=== PATIENT | male | born 1960 | race Caucasian/White ===

== ENCOUNTER 2025-01-02 16:58 | Inpatient (IN) | payer MEDICARE ==
[~2025-01-02] VITALS: Ht 172.7 cm; Wt 81.6 kg
[2025-01-02] MEDS ORDERED: ARIP30TA21 PO (19:13)
[2025-01-02] MEDS ORDERED: ICOS1CAP PO (19:13)
[2025-01-02] MEDS ORDERED: EMPA10TA PO (19:13)
[2025-01-02] MEDS ORDERED: LISI2.5T2 PO (19:13)
[2025-01-02] MEDS ORDERED: CHOL200059 PO (19:13)
[2025-01-02] MEDS ORDERED: FINA5TAB11 PO (19:13)
[2025-01-02] MEDS ORDERED: TAMS-12 PO (19:13)
[2025-01-02] MEDS ORDERED: METH5TAB70 PO (19:13)
[2025-01-02] MEDS ORDERED: METF-440 PO (19:13)
[2025-01-02] MEDS ORDERED: IBUP-1490 PO (19:13)
[2025-01-02] MEDS ORDERED: DIVA500T54 PO (19:13)
[2025-01-02 19:30] VITALS: BP 110/68; TEMP 97.9; O2SAT 99
[2025-01-02] MEDS: BLOOD SUGAR DIAGNOSTIC 1 EACH STRIP IN ONE (20:27)
[2025-01-02] MEDS ORDERED: VASCEPA 1 GM XX SCH (21:00)
[2025-01-02 21:18] VITALS: BP 110/68; TEMP 97.9; O2SAT 99
[2025-01-02] MEDS: TAMSULOSIN 0.4 MG CAP.SR.24H PO SCH (21:32)
[2025-01-02] MEDS: METFORMIN 500 MG TABLET PO SCH (22:00)
[2025-01-02] MEDS: ACETAMINOPHEN 325 MG TABLET PO PRN (22:45)
[2025-01-03] MEDS: TEMAZEPAM 7.5 MG CAPSULE PO PRN (00:07)
[2025-01-03 06:40] LABS: ALBUMIN 3.2 g/dL (3.4-5.0); BILIRUBIN,TOTAL 0.5 mg/dL (0.2-1.0); CALCIUM, SERUM 8.7 mg/dL (8.5-10.1); CREATININE 0.9 mg/dL (0.6-1.3); POTASSIUM 4.1 mmol/L (3.5-5.1); TOTAL PROTEIN, SERUM 6.5 g/dL (6.4-8.2)
[2025-01-03 08:00] VITALS: BP 124/75; TEMP 98.6; O2SAT 100
[2025-01-03] MEDS: FINASTERIDE (5 MG) 5 MG TABLET PO SCH (08:43)
[2025-01-03] MEDS: LISINOPRIL (5MG) 5 MG TABLET PO SCH (08:44)
[2025-01-03] MEDS: NICOTINE PATCH (21MG) 21 MG PATCH.TD24 TD SCH (08:44)
[2025-01-03] MEDS: CHOLECALCIFEROL 1,000 UNIT TABLET (VIT D3) PO SCH (08:44)
[2025-01-03] MEDS: METHIMAZOLE (5MG) 5 MG TABLET PO SCH (08:44)
[2025-01-03] MEDS: EMPAGLIFLOZIN 10 MG TABLET PO SCH (08:45)
[2025-01-03] MEDS: DIVALPROEX SODIUM 500 MG TABLET.DR PO SCH (09:03)
[2025-01-03] MEDS: ARIPIPRAZOLE 5 MG TABLET PO SCH (09:04)
[2025-01-03] MEDS: clonazePAM 0.5 MG TABLET PO PRN (13:55)
[2025-01-03 16:00] VITALS: BP 126/73; TEMP 98.7; O2SAT 97
[2025-01-03 19:54] VITALS: BP 114/64; TEMP 98.9; O2SAT 99
[2025-01-03] MEDS: QUETIAPINE FUMARATE 100 MG TABLET PO SCH (21:20)
[2025-01-04 08:00] VITALS: BP_SYST 119; BP_SYST 125; BP_DIAS 67; BP_DIAS 75; TEMP 97.8; O2SAT 99
[2025-01-04] MEDS: LamoTRIgine 25 MG TABLET PO SCH (13:14)
[2025-01-04 16:00] VITALS: BP 125/67; TEMP 98; O2SAT 99
[2025-01-04 20:19] VITALS: BP 132/72; TEMP 98.4; O2SAT 98
[2025-01-05 08:00] VITALS: BP 114/73; TEMP 98.7; O2SAT 100
[2025-01-05 15:13] VITALS: BP 134/77; TEMP 97.7; O2SAT 100
[2025-01-05] MEDS: clonazePAM 0.5 MG TABLET PO PRN (15:34)
[2025-01-05 20:00] VITALS: BP 134/74; TEMP 97.5; O2SAT 100
[2025-01-06 08:00] VITALS: BP 137/66; TEMP 98; O2SAT 96
[2025-01-06 16:00] VITALS: BP 123/73; TEMP 98.6; O2SAT 97
[2025-01-06 20:00] VITALS: BP 126/75; TEMP 99; O2SAT 97
[2025-01-07 08:00] VITALS: BP 118/74; TEMP 98; O2SAT 100
[2025-01-07 16:00] VITALS: BP 119/63; TEMP 97.9; O2SAT 95
[2025-01-07 20:00] VITALS: BP 130/70; TEMP 97.9; O2SAT 98
[2025-01-08 08:00] VITALS: BP 105/78; TEMP 98; O2SAT 99
[2025-01-08] MEDS: MAGNESIUM HYDROXIDE 30 ML UDC PO PRN (12:15)
[2025-01-08 16:00] VITALS: BP 118/71; TEMP 98.6; O2SAT 98
[2025-01-08 21:27] VITALS: BP 106/64; TEMP 98.6; O2SAT 98
[2025-01-09 08:00] VITALS: BP 102/63; TEMP 97.7; O2SAT 99
[2025-01-09 15:30] VITALS: BP 104/70; TEMP 98.2; O2SAT 97
[2025-01-09 20:58] VITALS: BP 114/66; TEMP 98.2; O2SAT 97
[2025-01-10 08:00] VITALS: BP 138/81; TEMP 98.7; O2SAT 100
[2025-01-10 16:00] VITALS: BP 121/80; TEMP 98.7; O2SAT 98
[2025-01-10 20:21] VITALS: BP 111/84; TEMP 98.5; O2SAT 97
[2025-01-10] MEDS: QUETIAPINE FUMARATE 100 MG TABLET PO SCH (21:05)
[2025-01-11 08:00] VITALS: BP 114/64; TEMP 97.5; O2SAT 99
[2025-01-11 16:00] VITALS: BP 106/63; TEMP 97.9; O2SAT 99
[2025-01-11 19:48] VITALS: BP 118/52; TEMP 97.8; O2SAT 99
[2025-01-11] MEDS: MAG HYDROX/AL HYDROX/SIMETH 30 ML UDC PO PRN (23:43)
[2025-01-12 08:00] VITALS: BP 106/73; TEMP 98.7; O2SAT 100
[2025-01-12 16:00] VITALS: BP 111/67; TEMP 97.9; O2SAT 99
[2025-01-12 20:52] VITALS: BP 134/71; TEMP 98.7; O2SAT 99
[2025-01-12] MEDS: IBUPROFEN 600 MG TABLET PO PRN (21:59)
[2025-01-13 08:00] VITALS: BP 88/58; TEMP 97.1; O2SAT 100
[2025-01-13 16:19] VITALS: BP 120/76; TEMP 98.2; O2SAT 99
== END 2025-01-13 16:20 | disposition home or self-care (01) | DRG 885 ==
LOC: GPS 18:04
PROVIDERS: ADMIT Psychiatry & Neurology Psychiatry; ATTEND Nurse Practitioner Acute Care
DX: F31.2 Bipolar disorder, current episode manic severe with psychotic features (principal); E44.1 Mild protein-calorie malnutrition; F29 Unspecified psychosis not due to a substance or known physiological condition; E11.9 Type 2 diabetes mellitus without complications; N40.0 Benign prostatic hyperplasia without lower urinary tract symptoms; E05.90 Thyrotoxicosis, unspecified without thyrotoxic crisis or storm; E78.5 Hyperlipidemia, unspecified; I10 Essential (primary) hypertension; Z71.6 Tobacco abuse counseling; Z73.6 Limitation of activities due to disability; E88.09 Other disorders of plasma-protein metabolism, not elsewhere classified; F17.210 Nicotine dependence, cigarettes, uncomplicated; Z79.899 Other long term (current) drug therapy; Z68.27 Body mass index [BMI] 27.0-27.9, adult; Z79.84 Long term (current) use of oral hypoglycemic drugs
CPT/HCPCS: 36415; 80053-TC; 80061-TC; 82962-TC; 84443-TC; 87081-TC

== ENCOUNTER 2025-01-27 19:21 | Inpatient (IN) | payer MEDICARE, OTHER ==
[~2025-01-27] VITALS: Ht 177.8 cm; Wt 74.8 kg
[~2025-01-27 19:21] MED LIST: ARIP30TA21 PO; CHOL200059 PO; DIVA500T54 PO; EMPA10TA PO; FINA5TAB11 PO; IBUP-1490 PO; ICOS1CAP PO; LISI2.5T2 PO; METF-440 PO; METH5TAB70 PO; TAMS-12 PO
[2025-01-27 23:21] LABS: BASOPHILS # (AUTO) 0.1 K/uL (0.0-0.2); BASOPHILS % (AUTO) 0.9 % (0.0-2.0); EOSINOPHILS # (AUTO) 0.4 K/uL (0.0-0.7); EOSINOPHILS % (AUTO) 6.9 % (0.0-6.0); HEMATOCRIT 42 % (39-51); HEMOGLOBIN 14.4 g/dL (13.5-17.5); LYMPHOCYTES # (AUTO) 1.3 K/uL (0.8-4.8); LYMPHOCYTES % (AUTO) 20.3 % (20.0-44.0); MEAN CORPUSCULAR HEMOGLOBIN 29 PG (26.0-33.0); MEAN CORPUSCULAR HGB CONC 34 g/dl (31.0-36.0); MEAN CORPUSCULAR VOLUME 86 fL (80-96); MONOCYTES # (AUTO) 0.6 K/uL (0.1-1.30); MONOCYTES % (AUTO) 10.3 % (2.0-12.0); NEUTROPHILS # (AUTO) 3.8 K/uL (1.8-8.9); NEUTROPHILS % (AUTO) 61.6 % (43.0-81.0); PLATELET COUNT (AUTO) 171 K/uL (150-450); RED BLOOD CELL COUNT(AUTO) 4.93 MIL/uL (4.5-6.0); RED CELL DISTRIBUTION WIDTH 14.8 % (11.5-15.0); WHITE BLOOD COUNT (AUTO) 6.2 K/uL (4.3-11.0)
[2025-01-27 23:33] LABS: CALCIUM, SERUM 9.1 mg/dL (8.5-10.1); CARBON DIOXIDE 29 mmol/L (21-32); CHLORIDE 99 mmol/L (98-107); CREATININE 1.3 mg/dL (0.6-1.3); GLUCOSE 110 mg/dL (74-106); POTASSIUM 4.4 mmol/L (3.5-5.1); SODIUM SERUM 135 mmol/L (136-145); UREA NITROGEN, BLOOD 13 mg/dL (7-18)
[2025-01-27 23:38] LABS: ALANINE AMINOTRANSFERASE 29 U/L (12-78); ALBUMIN 3.6 g/dL (3.4-5.0); ALKALINE PHOSPHATASE 60 U/L (46-116); ASPARTATE AMINOTRANSFERASE 29 U/L (15-37); BILIRUBIN,DIRECT 0.2 mg/dL (0.0-0.2); BILIRUBIN,TOTAL 0.7 mg/dL (0.2-1.0)
[2025-01-27 23:39] LABS: ACETAMINOPHEN <10 ug/ml (10-30); ALCOHOL, BLOOD < 3 mg/dL (0-10); SALICYLATE 1.4 mg/dL (2.8-20.0)
[2025-01-27 23:43] LABS: APPEARANCE,URINE CLEAR (CLEAR); BILIRUBIN,URINE NEGATIVE (NEGATIVE); BLOOD, URINE NEGATIVE Ery/uL (NEGATIVE); COLOR,URINE YELLOW (YELLOW); KETONES,URINE NEGATIVE (NEGATIVE); LEUKOCYTE ESTERASE ,URINE NEGATIVE (NEGATIVE); NITRITE, URINE NEGATIVE (NEGATIVE); PROTEIN,URINE NEGATIVE (NEGATIVE); UGLUCOSE NEGATIVE (NEGATIVE); UROBILINOGEN,URINE 0.2 EU/dL (0.2)
[2025-01-28 00:13] LABS: AMPHETAMINE, URINE NEGATIVE (NEGATIVE); BARBITURATE, URINE NEGATIVE (NEGATIVE); BENZODIAZEPINE, URINE NEGATIVE (NEGATIVE); CANNABINOID, URINE NEGATIVE (NEGATIVE); COCCAINE, URINE NEGATIVE (NEGATIVE); OPIATE, URINE NEGATIVE (NEGATIVE); PHENCYCLIDINE SCREEN,URINE NEGATIVE (NEGATIVE)
[2025-01-28] MEDS ORDERED: IBUPROFEN 600 MG TABLET PO PRN (11:00)
[2025-01-28] MEDS ORDERED: TAMSULOSIN 0.4 MG CAP.SR.24H ONE (11:47)
[2025-01-28] MEDS: FINASTERIDE (5 MG) 5 MG TABLET PO SCH (11:50)
[2025-01-28] MEDS: CHOLECALCIFEROL 1,000 UNIT TABLET (VIT D3) PO SCH (11:50)
[2025-01-28] MEDS: METHIMAZOLE (5MG) 5 MG TABLET PO SCH (11:50)
[2025-01-28] MEDS: TAMSULOSIN 0.4 MG CAP.SR.24H PO SCH (11:50)
[2025-01-28] MEDS: LISINOPRIL (5MG) 5 MG TABLET PO SCH (11:50)
[2025-01-28] MEDS: EMPAGLIFLOZIN 10 MG TABLET PO SCH (11:50)
[2025-01-28] MEDS ORDERED: CHOLECALCIFEROL 1,000 UNIT TABLET (VIT D3) ONE (11:58)
[2025-01-28 18:00] VITALS: O2SAT 98
[2025-01-28 20:00] VITALS: BP 124/75; TEMP 98.2; O2SAT 97
[2025-01-28] MEDS ORDERED: LORAZEPAM 1 MG TABLET PO PRN (21:00)
[2025-01-28] MEDS ORDERED: ACETAMINOPHEN 325 MG TABLET PO PRN (21:00)
[2025-01-28] MEDS ORDERED: ZOLPIDEM TARTRATE 5 MG TABLET PO PRN (21:00)
[2025-01-28] MEDS: MAG HYDROX/AL HYDROX/SIMETH 30 ML UDC PO PRN (21:17)
[2025-01-28] MEDS: GUAIFENESIN/D-METHORPHAN HB 5 ML UDC PO PRN (21:17)
[2025-01-28] MEDS: METFORMIN 500 MG TABLET PO SCH (21:17)
[2025-01-28] MEDS: BLOOD SUGAR DIAGNOSTIC 1 EACH STRIP IN ONE (21:36)
[2025-01-29 08:00] VITALS: BP 104/64; TEMP 98; O2SAT 96
[2025-01-29 08:29] LABS: BASOPHILS % (AUTO) 0.4 % (0.0-2.0); EOSINOPHILS # (AUTO) 0.3 K/uL (0.0-0.7); EOSINOPHILS % (AUTO) 4.7 % (0.0-6.0); HEMATOCRIT 48 % (39-51); LYMPHOCYTES # (AUTO) 1.4 K/uL (0.8-4.8); LYMPHOCYTES % (AUTO) 24.5 % (20.0-44.0); MEAN CORPUSCULAR HEMOGLOBIN 29 PG (26.0-33.0); MEAN CORPUSCULAR HGB CONC 33 g/dl (31.0-36.0); MEAN CORPUSCULAR VOLUME 87 fL (80-96); MONOCYTES # (AUTO) 0.7 K/uL (0.1-1.30); MONOCYTES % (AUTO) 12.7 % (2.0-12.0); NEUTROPHILS # (AUTO) 3.3 K/uL (1.8-8.9); NEUTROPHILS % (AUTO) 57.7 % (43.0-81.0); PLATELET COUNT (AUTO) 174 K/uL (150-450); RED BLOOD CELL COUNT(AUTO) 5.57 MIL/uL (4.5-6.0); RED CELL DISTRIBUTION WIDTH 14.8 % (11.5-15.0); WHITE BLOOD COUNT (AUTO) 5.8 K/uL (4.3-11.0)
[2025-01-29 08:49] LABS: CALCIUM, SERUM 9.2 mg/dL (8.5-10.1); POTASSIUM 4.3 mmol/L (3.5-5.1)
[2025-01-29 16:00] VITALS: BP 119/64; TEMP 98; O2SAT 99
[2025-01-29] MEDS: ARIPIPRAZOLE 5 MG TABLET PO SCH (16:30)
[2025-01-29] MEDS ORDERED: LamoTRIgine 25 MG TABLET PO SCH (17:00)
[2025-01-29 20:23] VITALS: BP 117/66; TEMP 98.1; O2SAT 97
[2025-01-29] MEDS: LamoTRIgine 25 MG TABLET PO SCH (21:13)
[2025-01-29] MEDS: QUETIAPINE FUMARATE 100 MG TABLET PO SCH (22:25)
[2025-01-30 08:00] VITALS: BP 103/77; TEMP 98; O2SAT 98
[2025-01-30] MEDS: ARIPIPRAZOLE 5 MG TABLET PO SCH (08:57)
[2025-01-30 16:09] VITALS: BP 123/80; TEMP 98; O2SAT 98
[2025-01-30] MEDS: ZOLPIDEM TARTRATE 5 MG TABLET PO PRN (21:16)
[2025-01-30 23:02] VITALS: BP 132/79; TEMP 98; O2SAT 97
[2025-01-31 08:00] VITALS: BP 121/59; TEMP 98.1; O2SAT 99
[2025-01-31] MEDS: LamoTRIgine 100 MG TABLET PO SCH (08:26)
[2025-01-31] MEDS: DIVALPROEX SODIUM 125 MG CAP.SPRINK PO SCH (11:41)
[2025-01-31 15:19] VITALS: BP 118/76; TEMP 98; O2SAT 97
[2025-01-31] MEDS: LORAZEPAM 1 MG TABLET PO PRN (18:41)
[2025-01-31 20:16] VITALS: BP 105/70; TEMP 98.5; O2SAT 96
[2025-02-01 08:00] VITALS: BP 110/70; TEMP 97.6; O2SAT 97
[2025-02-01 16:00] VITALS: BP 102/71; TEMP 98.1; O2SAT 98
[2025-02-01 20:01] VITALS: BP 110/59; TEMP 98.6; O2SAT 98
[2025-02-02 08:00] VITALS: BP 105/66; TEMP 97.8; O2SAT 98
[2025-02-02 16:00] VITALS: BP 101/64; TEMP 97.7; O2SAT 100
[2025-02-02 20:02] VITALS: BP 115/72; TEMP 98.1; O2SAT 100
[2025-02-03 08:00] VITALS: BP 100/66; TEMP 98.6; O2SAT 97
[2025-02-03] MEDS: DIVALPROEX SODIUM 125 MG CAP.SPRINK PO SCH (12:16)
[2025-02-03 16:00] VITALS: BP 125/70; TEMP 98.8; O2SAT 98
[2025-02-03 20:00] VITALS: BP 104/64; TEMP 98.1; O2SAT 97
[2025-02-04 08:00] VITALS: BP 109/71; TEMP 97.8; O2SAT 98
[2025-02-04 16:00] VITALS: BP 119/61; TEMP 97.8; O2SAT 96
[2025-02-04 20:00] VITALS: BP 111/70; TEMP 98.1; O2SAT 100
[2025-02-05 08:00] VITALS: BP 112/74; TEMP 98; O2SAT 99
[2025-02-05 16:00] VITALS: BP 103/68; TEMP 98.1; O2SAT 100
[2025-02-05 20:18] VITALS: BP 130/66; TEMP 98.1; O2SAT 96
[2025-02-06 08:00] VITALS: BP 99/66; TEMP 98; O2SAT 98
[2025-02-06 15:46] VITALS: BP 115/73; TEMP 98.1; O2SAT 97
[2025-02-06 20:09] VITALS: BP 111/67; TEMP 98.3; O2SAT 100
[2025-02-07 08:00] VITALS: BP 103/68; TEMP 98.7; O2SAT 98
[2025-02-07 16:00] VITALS: BP 104/67; TEMP 97.9; O2SAT 100
[2025-02-07 20:06] VITALS: BP 112/63; TEMP 97.9; O2SAT 97
[2025-02-08 08:00] VITALS: BP 104/70; TEMP 97.8; O2SAT 97
[2025-02-08 15:59] VITALS: BP 100/61; TEMP 98.4; O2SAT 100
[2025-02-08] MEDS: DIVALPROEX SODIUM 125 MG CAP.SPRINK PO SCH (17:25)
[2025-02-08 20:04] VITALS: BP 102/63; TEMP 98.4; O2SAT 98
[2025-02-09 08:00] VITALS: BP 106/67; TEMP 98.8; O2SAT 98
[2025-02-09 16:00] VITALS: BP 110/70; TEMP 98.6; O2SAT 100
[2025-02-09 20:20] VITALS: BP 119/85; TEMP 98.5; O2SAT 96
[2025-02-10 08:00] VITALS: BP 115/64; TEMP 98.6; O2SAT 100
[2025-02-10 16:00] VITALS: BP 100/64; TEMP 98; O2SAT 97
[2025-02-10] MEDS: MAGNESIUM HYDROXIDE 30 ML UDC PO PRN (19:54)
[2025-02-10 20:00] VITALS: BP_SYST 119; BP_SYST 134; BP_DIAS 74; BP_DIAS 80; TEMP 98.6; O2SAT 98
[2025-02-11 08:00] VITALS: BP 116/69; TEMP 97.8; O2SAT 98
[2025-02-11 08:18] VITALS: BP 116/69
== END 2025-02-11 13:35 | DRG 885 ==
LOC: ER 19:23 → GPS IN 01-28 08:12 → GPS 01-28 18:23
PROVIDERS: ADMIT Psychiatry & Neurology Psychosomatic Medicine; ATTEND Nurse Practitioner Acute Care
DX: F31.64 Bipolar disorder, current episode mixed, severe, with psychotic features (principal); F03.92 Unspecified dementia, unspecified severity, with psychotic disturbance; F29 Unspecified psychosis not due to a substance or known physiological condition; E11.9 Type 2 diabetes mellitus without complications; F03.90 Unspecified dementia, unspecified severity, without behavioral disturbance, psychotic disturbance, mood disturbance, and anxiety; I10 Essential (primary) hypertension; E05.90 Thyrotoxicosis, unspecified without thyrotoxic crisis or storm; E78.5 Hyperlipidemia, unspecified; F17.210 Nicotine dependence, cigarettes, uncomplicated; Z71.6 Tobacco abuse counseling; Z79.84 Long term (current) use of oral hypoglycemic drugs; N40.0 Benign prostatic hyperplasia without lower urinary tract symptoms; F31.2 Bipolar disorder, current episode manic severe with psychotic features; Z73.6 Limitation of activities due to disability; F39 Unspecified mood [affective] disorder; Z20.822 Contact with and (suspected) exposure to COVID-19; Z79.899 Other long term (current) drug therapy
CPT/HCPCS: 36415; 80048-TC; 80061-TC; 80076-TC; 80164-TC; 82962-TC; 85025-TC; 97116-TC; 97530-TC; G0480